=== PATIENT | male | born 1960 | race Caucasian/White ===

== ENCOUNTER 2025-02-08 09:40 | Day surgery (SDC) | payer MEDICARE, OTHER ==
[~2025-02-08] VITALS: Ht 177.8 cm; Wt 120.0 kg
[~2025-02-08 09:40] MED LIST: ALTOPREV40 MG PO; CYCLOBENZAPRINE10 MG PO; DICLOFENAC SODI75 MG PO; FENOFIBRATE160 MG PO; GABAPENTIN300 MG PO; IBLOOD GLUCOSE TEST STRIP 1 EA TEST VI PRN; LACTATED RINGER'S 1,000 ML IV SCH; LIDOCAINE HCL 1% 5 ML SDV INJ ONE; LISINOPRIL-HCT1 EACH PO; METOPROLOL SUCC50 MG PO; NORCO 7.5-3251 EACH PO; PERCOCET 7.5-31 EACH PO; RANITIDINE HCL300 MG PO; SILDENAFIL20 MG PO; SIMVASTATIN20 MG PO; TRAMADOL HCL50 MG; ULTRAM50 MG PO; ZESTRIL40 MG PO
[2025-02-08 10:17] VITALS: BP 165/84
[2025-02-08] MEDS ORDERED: LIDOCAINE HCL 2% 5 ML SDV ONE (11:58)
--- NOTE | 2025-02-08 13:30 | NUR ---
02/08/25 1330 Kaya Carrington 1320- PT PRESENTS TO PACU, RIGHT LATERAL POSITION. OPA IN PLACE, BREATHING EVEN AND NON LABORED, O2 AT 6L PER MASK. LR INFUSING TO RH IV. ABD ROUND, SOFT, NON DISTENDED. ALL MONITORS IN PLACE.
[2025-02-08 13:57] VITALS: BP 130/91
--- NOTE | 2025-02-10 11:54 | PATH ---
[facility] [address] [facility], [place] [address] Signed SPECIMEN(S): A SIGMOID POLYP AT 25 CM SPECIMEN(S): B RECTAL POLYP AT 10 CM SPECIMEN SOURCE: A. SIGMOID POLYP AT 25 CM B. RECTAL POLYP AT 10 CM CLINICAL HISTORY: Screening FINAL PATHOLOGIC DIAGNOSIS: A. Sigmoid colon at 25 cm, polypectomy: - Hyperplastic polyp. B. Rectal polyp at 10 cm, polypectomy: - Hyperplastic polyp. DWS:clv MICROSCOPIC EXAMINATION: Histologic sections of all submitted blocks are examined by light microscopy. These findings, together with the gross examination, support the pathologic diagnosis. GROSS DESCRIPTION: A. The specimen, labeled and designated "Cordero, sigmoid polyp at 25 cm," is received in formalin and consists of two troncoso soft tissue fragments, ranging from 0.2-0.3 cm. Entirely submitted in (A1). B. The specimen, labeled and designated "Cordero, rectal polyp at 10 cm," is received in formalin and consists of two troncoso soft tissue fragments, ranging from 0.2-0.3 cm. Entirely submitted in (B1). VB (under the direct supervision of a pathologist) The Gross Description was prepared using a voice recognition system. The report was reviewed for accuracy; however, sound-alike word errors, addition and/or deletions may occur. If there is any question about this report, please contact Client Services. PERFORMING LABORATORY: Technical component was performed by [facility], [address] [place] [id number] (CLIA# [id number]). Professional interpretation was performed by [facility], [address] [place] [phone] (CLIA#: [id number]). PATIENT NAME: KERRY CORDERO PATHOLOGY DATE OF : 56 REPORT #: [id number] PHYSICIAN: [facility] PCP: REPORT IS CONFIDENTIAL AND NOT TO BE RELEASED WITHOUT AUTHORIZATION [address] [place], [place] [address] Signed Diagnostician: Ton Leone MD Pathologist Electronically Signed 02/10/2025 Copies: ~ PATIENT NAME: KERRY CORDERO PATHOLOGY DATE OF : 56 REPORT #: [id number] PHYSICIAN: [facility] PCP: REPORT IS CONFIDENTIAL AND NOT TO BE RELEASED WITHOUT AUTHORIZATION
== END 2025-02-08 14:05 | disposition home or self-care (01) ==
LOC: DS 09:40 → OPS 09:40 → DS 09:42 → OPS 09:42 → DS 12:40 → OPS 14:05 → DS 14:15
PROVIDERS: ATTEND Surgery
PROC: 0DBN8ZZ Excision of Sigmoid Colon, Via Natural or Artificial Opening Endoscopic (ICD-10-PCS; 2025-02-08)
PROC: 0DBP8ZZ Excision of Rectum, Via Natural or Artificial Opening Endoscopic (ICD-10-PCS; principal; 2025-02-08 11:40)
DX: Z12.11 Encounter for screening for malignant neoplasm of colon (principal); K63.5 Polyp of colon; K62.1 Rectal polyp; K64.8 Other hemorrhoids; I10 Essential (primary) hypertension; E78.2 Mixed hyperlipidemia; E66.9 Obesity, unspecified; Z68.37 Body mass index [BMI] 37.0-37.9, adult; Z79.899 Other long term (current) drug therapy
CPT/HCPCS: 00812; 88305; J2003; J2704; J7121